=== PATIENT | female | born 1960 | race Two or more races ===

== ENCOUNTER 2021-03-23 00:26 | Emergency (ER) | payer OTHER ==
[~2021-03-23] VITALS: Ht 160 cm; Wt 72.6 kg
[2021-03-23 00:57] VITALS: BP 146/95
[2021-03-23 02:56] LABS: Basophils # (auto) 0.1 10 ^3/uL (0-0.2); Basophils % (auto) 0.7 % (0.0-2.0); Eosinophils # (auto) 0.1 10 ^3/uL (0-0.8); Eosinophils % (auto) 0.9 % (0.0-7.0); Hematocrit 38.6 % (36.0-46.0); Hemoglobin 12.8 g/dL (12.2-16.2); Lymphocytes # (auto) 1.7 10 ^3/uL (0.4-5.4); Lymphocytes % (auto) 19.8 % (10.0-50.0); Mean Corpuscular Hemoglobin 27.2 pg (28.0-32.0); Mean Corpuscular Hgb Conc. 33.1 g/dL (32.0-36.0); Monocytes # (auto) 0.5 10 ^3/uL (0-1.3); Monocytes % (auto) 5.7 % (0.0-12.0); Neutrophils # (auto) 6.3 10 ^3/uL (1.6-8.6); Neutrophils % (auto) 72.9 % (37.0-80.0); Nucleated Red Blood Cells % 0.1 %; Red Blood Cells 4.71 10^6/uL (4.0-5.20); Red Cell Distribution Width 14.1 % (11.8-14.3); White Blood Cell 8.6 10^3/uL (4.4-10.8)
[2021-03-23 03:08] LABS: Albumin 3.8 g/dL (3.4-5.0); Calcium 9.2 mg/dL (8.5-10.1); Potassium 5.2 mmol/L (3.5-5.1)
[2021-03-23 03:11] LABS: BUN/Creatinine Ratio 25.3
[2021-03-23 03:16] LABS: Bilirubin, Total 0.5 mg/dL (0.2-1.0); Total Protein 7.6 g/dL (6.4-8.2)
[2021-03-23] MEDS ORDERED: CALCIUM GLUC 1,000mg/50ml-NS 50 ML IV ONE (05:00)
== END 2021-03-23 10:39 | disposition home or self-care (01) ==
LOC: ER 00:26 → EDBD 00:26 → ER 10:39
DX: R10.33 Periumbilical pain (principal); H81.13 Benign paroxysmal vertigo, bilateral; Z98.51 Tubal ligation status
CPT/HCPCS: 36415; 80053; 84484; 85025; 93005

== ENCOUNTER 2022-11-29 16:16 | Emergency (ER) | payer OTHER ==
[~2022-11-29] VITALS: Ht 160 cm; Wt 78.7 kg
[2022-11-29 16:16] VITALS: BP 126/76
[2022-11-29] MEDS ORDERED: IBUP-1456 PO (17:10)
[2022-11-29] MEDS ORDERED: CEPH500C PO (17:10)
== END 2022-11-29 17:39 | disposition home or self-care (01) ==
LOC: ER 16:16
DX: L60.0 Ingrowing nail (principal); Z98.51 Tubal ligation status

== ENCOUNTER 2023-10-23 14:58 | Emergency (ER) | payer OTHER ==
[~2023-10-23] VITALS: Ht 165.1 cm; Wt 75.1 kg
[~2023-10-23 14:58] MED LIST: CEPH500C PO; IBUP-1456 PO
[2023-10-23 16:31] LABS: Urine Bacteria MOD /hpf (None Seen); Urine Blood 1+ /uL (Negative); Urine Clarity Clear (Clear); Urine Color Light-Yellow (Yellow); Urine Protein, UAD Negative (Negative); Urine Specific Gravity 1.007 (1.001-1.035); Urine Urobilinogen Normal (Negative); Urine WBC 118 /hpf (0 - 5); Urine pH 6.5 (5.0-9.0)
[2023-10-23 16:35] LABS: Basophils # (auto) 0.1 10 ^3/uL (0-0.2); Basophils % (auto) 0.5 % (0.0-2.0); Eosinophils # (auto) 0.1 10 ^3/uL (0-0.8); Eosinophils % (auto) 0.5 % (0.0-7.0); Hemoglobin 12.1 g/dL (12.2-16.2); Lymphocytes # (auto) 2.2 10 ^3/uL (0.4-5.4); Lymphocytes % (auto) 20.2 % (10.0-50.0); Mean Corpuscular Hemoglobin 27.4 pg (28.0-32.0); Mean Corpuscular Hgb Conc. 33.7 g/dL (32.0-36.0); Mean Corpuscular Volume 81.3 fL (80.0-100.0); Neutrophils # (auto) 7.6 10 ^3/uL (1.6-8.6); Neutrophils % (auto) 69.8 % (37.0-80.0); Red Blood Cells 4.43 10^6/uL (4.0-5.20); Red Cell Distribution Width 13.7 % (11.8-14.3); White Blood Cell 10.9 10^3/uL (4.4-10.8)
[2023-10-23 16:57] LABS: Alanine Aminotransferase 17 U/L (7-40); Albumin 4.5 g/dL (3.2-4.8); Alkaline Phosphatase 85 U/L (46-116); Anion Gap 8 (5-15); Aspartate Aminotransferase 17 U/L (13-40); BUN/Creatinine Ratio 20.3 (10.0-20.0); Bilirubin, Total 0.6 mg/dL (0.2-1.0); Blood Urea Nitrogen 16 mg/dL (9-23); Carbon Dioxide 28 mmol/L (20-30); Chloride 106 mmol/L (98-107); Glucose 92 mg/dL (74-106); Lipase 64 U/L (12-53); Potassium 4.7 mmol/L (3.5-5.1); Sodium 142 mmol/L (136-145); Total Protein 7.5 g/dL (5.7-8.2)
[2023-10-23] MEDS ORDERED: ACET500T58 PO (18:29)
[2023-10-23] MEDS ORDERED: MET500T PO (18:29)
[2023-10-23] MEDS ORDERED: DICY10CA PO (18:29)
[2023-10-23] MEDS ORDERED: NITR-87 PO (18:29)
[2023-10-23] MEDS ORDERED: ZOFR4T PO (18:31)
[2023-10-23] MEDS: DICYCLOMINE HCL (10MG/ML) 2 ML AMPULE IM ONE (21:43)
[2023-10-23] MEDS: ONDANSETRON ODT 4 MG TAB PO ONE (21:44)
[2023-10-23] MEDS: NITROFURANTOIN 100 mg CAP PO ONE (21:44)
[2023-10-23 22:02] VITALS: BP 130/72; PULSE 77; RESP 18; TEMP 98.6; O2SAT 98
== END 2023-10-23 22:04 | disposition home or self-care (01) ==
LOC: ER 14:58
DX: K29.00 Acute gastritis without bleeding (principal); N39.0 Urinary tract infection, site not specified; Z98.890 Other specified postprocedural states; Z79.899 Other long term (current) drug therapy
CPT/HCPCS: 36415; 74176; 80053; 81001; 83690; 85025; 87045; 96372; 99285; J0500; Q0162; 87427

== ENCOUNTER 2024-09-10 15:23 | Inpatient (IN) | payer OTHER ==
[~2024-09-10] VITALS: Ht 165.1 cm; Wt 72.5 kg
[~2024-09-10 15:23] MED LIST changes: +ACET500T58 PO; +DICY10CA PO; +MET500T PO; +NITR-87 PO; +ZOFR4T PO
--- NOTE | 2024-09-10 15:48 | ED.PDOC ---
HPI (NEURO) HPI Comments 63 y/o F presents with c/o dizziness She reports on sudden onset of symptoms at 1000, this morning. Describes as room spinning sensation. Cannot stand and walk straight Reproducible with rapid rotations of her head. Vitals: temperature of 97.5F, pulse rate of 83, respiratory rate of 19, blood pressure 145/93, SpO2 of 98%RA Past medical history: denies Past surgical history: tubal ligation Maikol: HPI: Poor Historian. REVIEW OF SYSTEMS: CONSTITUTIONAL: Denies acute: fever, diaphoresis, chills, generalized weakness. HEAD: Denies acute: headache, photophobia Eyes: Denies acute: Double vision, vision loss, eye pain, eye discharge. EARS: Denies acute: tinnitus, hearing loss, ear discharge, ear pain, THROAT: Denies acute: sore throat, swelling, difficulty swallowing , pain with swallowing, change in voice. NECK: Denies acute: neck pain, neck swelling, stiff neck. HEART: Denies acute : chest pain, palpitations, LUNGS: Denies acute: SOB, wheezing, cough, hemoptysis ABDOMEN: Denies acute: abdominal pain, Nausea, Vomiting, diarrhea, melena , hematemesis, hematochezia SKIN: Denies acute: rash, redness, lesions, itchiness. EXTREMITIES: Denies acute: calf pain, numbness, tingling, weakness, denies pain in extremity. Denies acute: Low back pain. Neuro: Denies acute: focal neurological deficit, motor or sensory focal neurological deficit, tremors, seizure like activity, confusion, , change in mental status, loss of bowel or bladder function, cauda equina like symptoms. : Denies acute: dysuria, hematuria, flank pain, increase in urinary frequency. PSYCH: Denies acute: hallucination, suicidal ideation, homicidal ideation. FEMALE: Denies acute: abnormal vaginal bleeding, foul odor, unusual discharge. PHYSICAL EXAM: General: ----mild----acute distress, awake and alert. Head: normocephalic, atraumatic. Neck: supple, trachea is midline, no swelling. Throat: Normal phonation. Eyes:, no erythema, no purulent discharge, no proptosis, no icterus. Heart: regular rate, regular rhythm, no significant murmur appreciated. Lungs: no apparent respiratory distress, Able to speak in full sentences. No wheezing, no rhonchi, no crackles. No stridors Clear to auscultation bilaterally. Abdomen: non tender to palpation, non distended, soft, no guarding, no rebound, + bowel sounds. Neuro: Awake, Alert, oriented to name, self, situation, follows commands GCS=15. Speech is normal. Skin: no petechia, no purpura, no cyanosis, non-pale, not jaundice. Lower extremities: --no - Pitting edema no deformity, no focal swelling, no calf TTP. Makes eye contact. moves all four extremities. Face: no apparent facial droop. Ambulating in the ED independently. PERRLA, EOM-I CN 2-12 are grossly intact, No nystagmus. No nuchal rigidity, Kernig's sign, Brudzinski's sign, no meningeal signs. 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 Was a procedure done?: No Differential Diagnosis (SZ) Seizure: N/A General Weakness: Anemia, CVA, Dehydration, Dysrhythmia, Electrolyte imbalance, Encephalopathy, Guillain-[place], Hypoglycemia, Hypotension, Hypovolemia, Labyrinthitis, Meniere's disease, Myasthenia gravis, Myocardial infarction, Pulmonary embolus, Renal failure, Repiratory failure, TIA, VBI, Vertigo: central, Vertigo: peripheral, Vestibular neuronitis X-Ray, Labs, Meds, VS Vital Signs Date Time Temp Pulse Resp B/P (MAP) Pulse Ox O2 Delivery O2 Flow Rate FiO2 09/10/24 20:00 61 09/10/24 18:23 69 125/70 70 130/70 72 145/76 09/10/24 18:00 98.1 69 13 125/70 (88) 100 98.1 09/10/24 16:51 71 16 98 Room Air* 0 21 09/10/24 16:29 74 16 96 Room Air 09/10/24 16:29 98.1 74 16 127/74 (91) 96 98.1 09/10/24 15:41 97.5 83 19 145/93 (110) 98 97.5 09/10/24 15:37 72 Lab Test 09/10/24 18:37 09/10/24 17:55 09/10/24 16:42 09/10/24 15:43 Range/Units Troponin I High Sensitivity < 3 L < 3 L < 3 L </=34 ng/L C-Reactive Protein High Sensitivity Pending Urine Color Colorless Yellow Urine Clarity Clear Clear Urine pH 6.0 5.0-9.0 Urine Specific [place] 1.003 1.001-1.035 Urine Protein Negative Negative Urine Ketones Negative Negative Urine Blood Negative Negative /uL Urine Nitrite Negative Negative Urine Bilirubin Negative Negative Urine Urobilinogen Normal Negative mg/dL Urine Leukocyte Esterase 2+ Negative /uL Urine RBC <1 0 - 4 /hpf Urine Microscopic WBC 7 H 0-5 /HPF Urine Squamous Epithelial Cells None seen <5 /hpf Urine Bacteria Few H None Seen /hpf Urine Glucose Normal Normal mg/dL White Blood Count 9.9 4.4-10.8 10^3/uL Red Blood Count 4.55 4.0-5.20 10^6/uL Hemoglobin 12.4 12.2-16.2 g/dL Hematocrit 37.0 36.0-46.0 % Mean Corpuscular Volume 81.4 80.0-100.0 fL Mean Corpuscular Hemoglobin 27.1 L 28.0-32.0 pg Mean Corpuscular Hemoglobin Concent 33.3 32.0-36.0 g/dL Red Cell Distribution Width 14.1 11.8-14.3 % Platelet Count 297 140-450 10^3/uL Mean Platelet Volume 8.5 6.9-10.8 fL Neutrophils (%) (Auto) 70.3 37.0-80.0 % Lymphocytes (%) (Auto) 19.0 10.0-50.0 % Monocytes (%) (Auto) 8.8 0.0-12.0 % Eosinophils (%) (Auto) 1.4 0.0-7.0 % Basophils (%) (Auto) 0.5 0.0-2.0 % Neutrophils # (Auto) 6.9 1.6-8.6 10 ^3/uL Lymphocytes # (Auto) 1.9 0.4-5.4 10 ^3/uL Monocytes # (Auto) 0.9 0-1.3 10 ^3/uL Eosinophils # (Auto) 0.1 0-0.8 10 ^3/uL Basophils # (Auto) 0.1 0-0.2 10 ^3/uL Nucleated Red Blood Cells 0.0 % Sodium Level 140 136-145 mmol/L Potassium Level 4.1 3.5-5.1 mmol/L Chloride Level 103 98-107 mmol/L Carbon Dioxide Level 29 20-31 mmol/L Anion Gap 8 5-15 Blood Urea Nitrogen 21 9-23 mg/dL Creatinine 0.72 0.550-1.02 mg/dL Glomerular Filtration Rate Calc 93 >90 mL/min BUN/Creatinine Ratio 29.2 H 10.0-20.0 Serum Glucose 115 H 74-106 mg/dL Lactic Acid Level 0.5 0.4-2.0 mmol/L Calcium Level 9.8 8.7-10.4 mg/dL Magnesium Level 2.0 1.6-2.6 mg/dL Total Bilirubin 0.6 0.2-1.0 mg/dL Aspartate Amino Transferase (AST) 20 13-40 U/L Alanine Aminotransferase (ALT) 21 7-40 U/L Alkaline Phosphatase 87 46-116 U/L Total Protein 7.1 5.7-8.2 g/dL Albumin 4.6 3.2-4.8 g/dL Test 09/10/24 15:42 Range/Units POC Glucose 102 70-106 mg/dl Current Medications Medications (Trade) Dose Ordered Sig/Teodora Route Start Time Stop Time Status Last Admin Sodium Chloride 1,000 ml @ 1,000 mls/hr Q1H ONCE IV 09/10/24 15:30 09/10/24 16:29 DC 09/10/24 16:25 Meclizine HCl (Antivert Tablet) 25 mg ONCE ONCE PO 09/10/24 15:30 09/10/24 15:32 DC 09/10/24 16:24 Diazepam (Valium Tablet) 5 mg ONCE ONCE PO 09/10/24 18:15 09/10/24 18:26 DC 09/10/24 18:40 Ceftriaxone Sodium 50 ml @ 100 mls/hr ONCE ONCE IV 09/10/24 20:00 09/10/24 20:29 DC 09/10/24 20:[address] [address] Ph: [phone] DIAGNOSTIC IMAGING Diagnostic Imaging Report : [id number] Signed PATIENT: JOE SLAOMON EACCT: [id number] UNIT: [id number] : 1960 LOC: ER ROOM / BED: / AGE / SEX: 63 / F ADM STATUS: REG ER SERVICE 11 ORDERING PHYSICIAN: CAMRYN CALDERA DO PROCEDURE(s): HWOCT - HEAD WITHOUT CONTRAST REASON: dizzy ORDER NUMBER(s): [id number], ACCESSION NUMBER(s): [id number] CT BRAIN WITHOUT CONTRAST HISTORY: dizzy TECHNIQUE: Axial scans were obtained from the skull base through the vertex without contrast. Sagittal and coronal reformats were generated. One or more of the following radiation dose reduction techniques were used for this ex amination: automated exposure control, adjustment of the mA and/or kV according to patient size, use of iterative reconstruction technique. COMPARISON: None FINDINGS: Streak artifact limits evaluation of the skull base and posterior fossa. As visualized, no definite acute intracranial hemorrhage or evidence of large vessel territorial infarction is identified at this time. No midline shift. The basilar cisterns appear patent. Craig-white differentiation appears relatively preserved. The visualized paranasal sinuses and mastoid air cells are clear. No grossly displaced calvarial abnormalities identified. IMPRESSION: No acute intracranial Findings as visualized. If there is persistent clinical concern, follow-up MRI may be obtained to further evaluate. ATED BY: RAMAN RENTERIA MD DICTATED DATE/TIME: 09/10/242036 SIGNED BY: RAMAN RENTERIA MD SIGNED DATE/TIME: 09/10/242036 CC: Time of 1ST Reevaluation: 16:00 Reevaluation 1ST: Unchanged Reevaluation 2ND: Unchanged Patient Education/Counseling: Diagnosis, Treatment Family Education/Counseling: No Family Present Comments Patient received meclizine and continues to have vertigo-like symptoms. Patient was given Valium and she sent some improvement however when we ambulated her she became very dizzy and was almost about the fall. Patient was unsteady on her feet due to vertigo. I will place the patient for admission for further evaluation and treatment. Patient presented with the above HPI.--dizziness----workup was initiated. patient was found with the above mentioned diagnosis. the following medications were ordered: please refer to order lists of meds and tests obtained by myself Dr. Caldera. Patient ED course and VS have been stabilized. Patient has been reassessed in the ED and remained in a stable condition. Pertinent incidental findings were discussed with the patient and/or family. Patient/family voices understanding and is agreeable with plan. Patient has been observed in the ED adequate length of time to insure improvement/stability. Escalation of care considered: Consideration of escalation to observation or admission Patient was ADMITTED to the medicine team for further evaluation and treatment of their presentation. All the reports of any imaging studies that were ordered by myself were reviewed by myself. Departure 1 Departure Time of Disposition: 20:40 Impression: Primary Impression: Vertigo Disposition: ADMITTED INPATIENT Admit to: Tele Condition: Guarded Discharged With: Self Critical Care Note Critical Care Time?: No I personally scribed for CAMRYN CALDERA DO ([email or web address]) on 09/10/24 at 15:48. Electronically submitted by Devan Mesa ([email or web address]). CAMRYN CALDERA DO Sep 10, 2024 15:48
[2024-09-10 16:01] LABS: Basophils # (auto) 0.1 10 ^3/uL (0-0.2); Basophils % (auto) 0.5 % (0.0-2.0); Eosinophils # (auto) 0.1 10 ^3/uL (0-0.8); Eosinophils % (auto) 1.4 % (0.0-7.0); Hemoglobin 12.4 g/dL (12.2-16.2); Lymphocytes # (auto) 1.9 10 ^3/uL (0.4-5.4); Mean Corpuscular Hemoglobin 27.1 pg (28.0-32.0); Mean Corpuscular Hgb Conc. 33.3 g/dL (32.0-36.0); Mean Corpuscular Volume 81.4 fL (80.0-100.0); Monocytes # (auto) 0.9 10 ^3/uL (0-1.3); Monocytes % (auto) 8.8 % (0.0-12.0); Neutrophils # (auto) 6.9 10 ^3/uL (1.6-8.6); Neutrophils % (auto) 70.3 % (37.0-80.0); Platelet Count (auto) 297 10^3/uL (140-450); Red Blood Cells 4.55 10^6/uL (4.0-5.20); Red Cell Distribution Width 14.1 % (11.8-14.3); White Blood Cell 9.9 10^3/uL (4.4-10.8)
[2024-09-10 16:19] LABS: Alanine Aminotransferase 21 U/L (7-40); Albumin 4.6 g/dL (3.2-4.8); Alkaline Phosphatase 87 U/L (46-116); Anion Gap 8 (5-15); Aspartate Aminotransferase 20 U/L (13-40); BUN/Creatinine Ratio 29.2 (10.0-20.0); Blood Urea Nitrogen 21 mg/dL (9-23); Calcium 9.8 mg/dL (8.7-10.4); Carbon Dioxide 29 mmol/L (20-31); Chloride 103 mmol/L (98-107); Potassium 4.1 mmol/L (3.5-5.1); Sodium 140 mmol/L (136-145); Total Protein 7.1 g/dL (5.7-8.2)
[2024-09-10 16:20] LABS: Bilirubin, Total 0.6 mg/dL (0.2-1.0); Glucose 115 mg/dL (74-106)
[2024-09-10] MEDS: MECLIZINE HCL 25 MG TAB PO ONE (16:24)
[2024-09-10] MEDS: SODIUM CHLORIDE 0.9% 1,000 ML IV ONE (16:25)
[2024-09-10 16:51] VITALS: PULSE 71; RESP 16; O2SAT 98
[2024-09-10 18:13] LABS: Urine Bacteria FEW /hpf (None Seen); Urine Blood Negative /uL (Negative); Urine Clarity Clear (Clear); Urine Color Colorless (Yellow); Urine Protein, UAD Negative (Negative); Urine Specific Gravity 1.003 (1.001-1.035); Urine Squamous Epithelial Cell None Seen /hpf (<5); Urine Urobilinogen Normal (Negative); Urine WBC 7 /HPF (0-5)
[2024-09-10] MEDS: diazePAM 5 MG TAB PO ONE (18:40)
[2024-09-10 20:00] VITALS: PULSE 71; RESP 14; O2SAT 96
[2024-09-10] MEDS: cefTRIAXone 1GM/50ML D5W 50 ML IV ONE (20:30)
--- NOTE | 2024-09-10 20:40 | DVH ---
CT BRAIN WITHOUT CONTRAST HISTORY: dizzy TECHNIQUE: Axial scans were obtained from the skull base through the vertex without contrast. Sagitta l and coronal reformats were generated. One or more of the following radiation dose reduction techniq ues were used for this examination: automated exposure control, adjustment of the mA and/or kV accord ing to patient size, use of iterative reconstruction technique. COMPARISON: None FINDINGS: Streak artifact limits evaluation of the skull base and posterior fossa. As visualized, no definite acute intracranial hemorrhage or evidence of large vessel territorial infa rction is identified at this time. No midline shift. The basilar cisterns appear patent. Craig-white differentiation appears relatively preserved. The visualized paranasal sinuses and mastoid air cells are clear. No grossly displaced calvarial abno rmalities identified. IMPRESSION: No acute intracranial Findings as visualized. If there is persistent clinical concern, follow-up MRI may be obtained to further evaluate.
[2024-09-10] MEDS ORDERED: HYDROcodone-ACET 5/325MG TAB PO PRN (21:15)
[2024-09-10] MEDS ORDERED: ONDANSETRON HCL 4 MG/2 ML VIAL IV PRN (21:15)
[2024-09-10] MEDS ORDERED: DOCUSATE SOD 100 MG CAP PO PRN (21:15)
[2024-09-10] MEDS ORDERED: ACETAMINOPHEN 325 MG TAB PO PRN (21:15)
--- NOTE | 2024-09-10 21:17 | DVHHP2 ---
Admitting Diagnosis: Dizziness History of Present Illness 63 y/o F presents with c/o dizziness She reports on sudden onset of symptoms at 1000, this morning. Describes as room spinning sensation. Cannot stand and walk straight Reproducible with rapid rotations of her head. 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 HEAD: Denies acute: headache, photophobia Eyes: Denies acute: Double vision, vision loss, eye pain, eye discharge. EARS: Denies acute: tinnitus, hearing loss, ear discharge, ear pain, THROAT: Denies acute: sore throat, swelling, difficulty swallowing , pain with swallowing, change in voice. NECK: Denies acute: neck pain, neck swelling, stiff neck. HEART: Denies acute : chest pain, palpitations, LUNGS: Denies acute: SOB, wheezing, cough, hemoptysis ABDOMEN: Denies acute: abdominal pain, Nausea, Vomiting, diarrhea, melena , hematemesis, hematochezia SKIN: Denies acute: rash, redness, lesions, itchiness. EXTREMITIES: Denies acute: calf pain, numbness, tingling, weakness, denies pain in extremity. Denies acute: Low back pain. Neuro: Denies acute: focal neurological deficit, motor or sensory focal neurological deficit, tremors, seizure like activity, confusion, , change in mental status, loss of bowel or bladder function, cauda equina like symptoms. : Denies acute: dysuria, hematuria, flank pain, increase in urinary frequency. PSYCH: Denies acute: hallucination, suicidal ideation, homicidal ideation. FEMALE: Denies acute: abnormal vaginal bleeding, foul odor, unusual discharge. Allergies: Coded Allergies: NO KNOWN ALLERGIES (Unverified , 07/22/12) Home Meds Active Scripts Ondansetron Odt 4MG Tab (ZOFRAN PO) 4 Mg Tb, 4 MG PO Q6HP PRN, #20 TAB ODT TAB-DISSOLVE IN MOUTH, THEN SWALLOW Prov:SHIRLEY PARRY PAC 10/23/23 Acetaminophen (Acetaminophen) 500 Mg Tab, 500 MG PO Q4HP PRN, #30 TAB Prov:SHIRLEY PARRY PAC 10/23/23 Dicyclomine Hcl (BENTYL CAPSULE) 10 Mg Cp, 1 CAP PO Q6HPRN, #20 CAP 0 Refills Prov:SHIRLEY PARRY PAC 10/23/23 Metronidazole (Metronidazole) 500 Mg Tab, 500 MG PO BID for 10 Days, #20 TAB Prov:SHIRLEY PARRY PAC 10/23/23 Nitrofurantoin Monohydrate Mac (Macrobid) 100 Mg Cap, 100 MG PO BID for 7 Days, #14 CAP Prov:SHIRLEY PARRY PAC 10/23/23 Ibuprofen (Ibuprofen) 800 Mg Tab, 1 TAB PO TID, #30 TAB Prov:JAKE PINON 11/29/22 Cephalexin Monohydrate (Cephalexin) 500 Mg Cap, 1 CAP PO QID, #40 CAP Prov:JAKE PINON 11/29/22 Vital Signs Vital Signs Date Time Temp Pulse Resp B/P (MAP) Pulse Ox O2 Delivery O2 Flow Rate FiO2 09/10/24 20:00 61 09/10/24 18:23 125/70 130/70 145/76 09/10/24 18:00 98.1 13 100 98.1 09/10/24 16:51 Room Air* 0 21 Physical Exam Generally 60 years old woman, well nourished well developed. No apparent distress HEENT-atraumatic normocephalic Heart-regular rate and rhythm Lungs clear to auscultate bilaterally Abdomen soft nontender nondistended Musculoskeletal-no edema cyanosis Neuro-AO x3, cranial nerves 2-12 grossly intact, strength and sensory intact Results Labs Test 09/10/24 18:37 09/10/24 17:55 09/10/24 15:43 09/10/24 15:42 Range/Units Troponin I High Sensitivity < 3 L </=34 ng/L Urine Color Colorless Yellow Urine Clarity Clear Clear Urine pH 6.0 5.0-9.0 Urine Specific [place] 1.003 1.001-1.035 Urine Protein Negative Negative Urine Ketones Negative Negative Urine Blood Negative Negative /uL Urine Nitrite Negative Negative Urine Bilirubin Negative Negative Urine Urobilinogen Normal Negative mg/dL Urine Leukocyte Esterase 2+ Negative /uL Urine RBC <1 0 - 4 /hpf Urine Microscopic WBC 7 H 0-5 /HPF Urine Squamous Epithelial Cells None seen <5 /hpf Urine Bacteria Few H None Seen /hpf Urine Glucose Normal Normal mg/dL White Blood Count 9.9 4.4-10.8 10^3/uL Red Blood Count 4.55 4.0-5.20 10^6/uL Hemoglobin 12.4 12.2-16.2 g/dL Hematocrit 37.0 36.0-46.0 % Mean Corpuscular Volume 81.4 80.0-100.0 fL Mean Corpuscular Hemoglobin 27.1 L 28.0-32.0 pg Mean Corpuscular Hemoglobin Concent 33.3 32.0-36.0 g/dL Red Cell Distribution Width 14.1 11.8-14.3 % Platelet Count 297 140-450 10^3/uL Mean Platelet Volume 8.5 6.9-10.8 fL Neutrophils (%) (Auto) 70.3 37.0-80.0 % Lymphocytes (%) (Auto) 19.0 10.0-50.0 % Monocytes (%) (Auto) 8.8 0.0-12.0 % Eosinophils (%) (Auto) 1.4 0.0-7.0 % Basophils (%) (Auto) 0.5 0.0-2.0 % Neutrophils # (Auto) 6.9 1.6-8.6 10 ^3/uL Lymphocytes # (Auto) 1.9 0.4-5.4 10 ^3/uL Monocytes # (Auto) 0.9 0-1.3 10 ^3/uL Eosinophils # (Auto) 0.1 0-0.8 10 ^3/uL Basophils # (Auto) 0.1 0-0.2 10 ^3/uL Nucleated Red Blood Cells 0.0 % Sodium Level 140 136-145 mmol/L Potassium Level 4.1 3.5-5.1 mmol/L Chloride Level 103 98-107 mmol/L Carbon Dioxide Level 29 20-31 mmol/L Anion Gap 8 5-15 Blood Urea Nitrogen 21 9-23 mg/dL Creatinine 0.72 0.550-1.02 mg/dL Glomerular Filtration Rate Calc 93 >90 mL/min BUN/Creatinine Ratio 29.2 H 10.0-20.0 Serum Glucose 115 H 74-106 mg/dL Lactic Acid Level 0.5 0.4-2.0 mmol/L Calcium Level 9.8 8.7-10.4 mg/dL Magnesium Level 2.0 1.6-2.6 mg/dL Total Bilirubin 0.6 0.2-1.0 mg/dL Aspartate Amino Transferase (AST) 20 13-40 U/L Alanine Aminotransferase (ALT) 21 7-40 U/L Alkaline Phosphatase 87 46-116 U/L Total Protein 7.1 5.7-8.2 g/dL Albumin 4.6 3.2-4.8 g/dL POC Glucose 102 70-106 mg/dl Primary Diagnosis Persistent vertigo rule out posterior stroke Plan CT head negative Meclizine and Valium did not with the dizzy Check brain MRI Neurology consult Neuro check per floor protocol Full code Lovenox for DVT prophylaxis Regular diet Plan discussed with: Patient Problems List: (1) Vertigo Status: Acute Date of Service: Sep 10, 2024 Billing Provider: MARILU GUNDERSON MD Common Visit Codes: [id number] INP/OBS CARE (MOD) MARILU GUNDERSON MD Sep 10, 2024 21:17
[2024-09-10] MEDS: SODIUM CHLOR 0.9% PF (SALINE LOCK) 10ML VIAL/SYR IV SCH (21:59)
[2024-09-10 22:40] VITALS: BP 125/64; PULSE 61; RESP 16; TEMP 94.3; O2SAT 98
[2024-09-10 23:07] VITALS: RESP 14
[2024-09-10 23:17] VITALS: BP 125/64; PULSE 61; RESP 16; O2SAT 98
[2024-09-11 01:00] VITALS: BP 120/80; PULSE 68; RESP 17; TEMP 97.6; O2SAT 100
[2024-09-11 05:00] VITALS: BP 125/68; PULSE 65; RESP 17; TEMP 96.4; O2SAT 100
[2024-09-11 07:16] LABS: Basophils # (auto) 0 10 ^3/uL (0-0.2); Basophils % (auto) 0.3 % (0.0-2.0); Eosinophils # (auto) 0.2 10 ^3/uL (0-0.8); Eosinophils % (auto) 2.8 % (0.0-7.0); Hematocrit 34.9 % (36.0-46.0); Hemoglobin 11.6 g/dL (12.2-16.2); Lymphocytes % (auto) 24.9 % (10.0-50.0); Monocytes # (auto) 0.9 10 ^3/uL (0-1.3); Monocytes % (auto) 11.5 % (0.0-12.0); Neutrophils % (auto) 60.5 % (37.0-80.0); Red Blood Cells 4.29 10^6/uL (4.0-5.20); White Blood Cell 8.2 10^3/uL (4.4-10.8)
[2024-09-11 07:17] LABS: Mean Corpuscular Hemoglobin 27.1 pg (28.0-32.0); Mean Corpuscular Hgb Conc. 33.4 g/dL (32.0-36.0); Mean Corpuscular Volume 81.3 fL (80.0-100.0); Platelet Count (auto) 288 10^3/uL (140-450); Red Cell Distribution Width 14.2 % (11.8-14.3)
[2024-09-11 07:21] LABS: Alanine Aminotransferase 16 U/L (7-40); Albumin 4.1 g/dL (3.2-4.8); Alkaline Phosphatase 72 U/L (46-116); Anion Gap 8 (5-15); Aspartate Aminotransferase 17 U/L (13-40); Bilirubin, Total 0.6 mg/dL (0.2-1.0); Blood Urea Nitrogen 19 mg/dL (9-23); Calcium 9.7 mg/dL (8.7-10.4); Carbon Dioxide 28 mmol/L (20-31); Chloride 108 mmol/L (98-107); Glucose 101 mg/dL (74-106); Sodium 144 mmol/L (136-145); Total Protein 6.7 g/dL (5.7-8.2)
[2024-09-11 09:00] VITALS: BP 130/79; PULSE 76; RESP 20; TEMP 97.9; O2SAT 100
--- NOTE | 2024-09-11 09:51 | DVHPN2 ---
Subjective Continues to complain of dizziness Reviewed: Care Plan, H&P, Labs, Medications, Previous Orders, Radiology Changes from previous H/P or p: No Changes Objective Vitals Vital Signs Date Time Temp Pulse Resp B/P (MAP) Pulse Ox O2 Delivery O2 Flow Rate FiO2 09/11/24 09:00 97.9 76 20 130/79 (96) 100 97.9 09/10/24 23:07 Room Air* 0 21 Intake/Output Intake and Output 09/11/24 07:00 Intake Total 465 ml Balance 465 ml Intake Oral 465 ml # Voids 1 General Appearance: Alert, Oriented X3, Cooperative, No acute distress HEENT: Atraumatic Lungs: Clear to auscultation, Normal air movement Cardiovascular: Regular rate, Normal S1, Normal S2, No murmurs Abdomen: Normal bowel sounds, Soft, No tenderness Neuro: Normal speech, Cranial nerves 3-12 NL Psych/Mental Status: Mental status NL, Mood NL Medications Current Medications Medications Dose Ordered Sig/Teodora Route Start Time Stop Time Status Last Admin Dose Admin Sodium Chloride 10 ml Q8HR IV 09/10/24 22:00 09/11/24 06:02 10 ML Docusate Sodium 100 mg BIDPRN PRN PO 09/10/24 21:15 Acetaminophen 650 mg Q6HP PRN PO 09/10/24 21:15 Acetaminophen/ Hydrocodone Bitart 1 tab Q4HP PRN PO 09/10/24 21:15 Ondansetron HCl 4 mg Q4HP PRN IV 09/10/24 21:15 Laboratory Results Laboratory Tests 09/11/24 05:48 Chemistry Test 09/10/24 15:43 09/11/24 05:48 Albumin 4.6 g/dL (3.2-4.8) 4.1 g/dL (3.2-4.8) Calcium Level 9.8 mg/dL (8.7-10.4) 9.7 mg/dL (8.7-10.4) Magnesium Level 2.0 mg/dL (1.6-2.6) Total Protein 7.1 g/dL (5.7-8.2) 6.7 g/dL (5.7-8.2) LFT Test 09/10/24 15:43 09/11/24 05:48 Alanine Aminotransferase (ALT) 21 U/L (7-40) 16 U/L (7-40) Alkaline Phosphatase 87 U/L (46-116) 72 U/L (46-116) Aspartate Amino Transferase (AST) 20 U/L (13-40) 17 U/L (13-40) Total Bilirubin 0.6 mg/dL (0.2-1.0) 0.6 mg/dL (0.2-1.0) Urinalysis Test 09/10/24 17:55 Urine Color Colorless (Yellow) Urine Clarity Clear (Clear) Urine pH 6.0 (5.0-9.0) Urine Specific [place] 1.003 (1.001-1.035) Urine Protein Negative (Negative) Urine Ketones Negative (Negative) Urine Blood Negative /uL (Negative) Urine Nitrite Negative (Negative) Urine Bilirubin Negative (Negative) Urine Urobilinogen Normal mg/dL (Negative) Urine Leukocyte Esterase 2+ /uL (Negative) Urine RBC <1 /hpf (0 - 4) Urine Microscopic WBC 7 /HPF (0-5) H Urine Squamous Epithelial Cells None seen /hpf (<5) Urine Bacteria Few /hpf (None Seen) H Urine Glucose Normal mg/dL (Normal) Labs and/or images reviewed: Labs reviewed by me, Image(s) reviewed by me Assessment/Plan Assessment/Plan A 63-year-old female patient; with multiple comorbidities; presented to the emergency department with acute dizziness. Acute dizziness; stroke ruled out; unclear etiology Overweight Negative orthostatics Reviewed head CT and brain MRI that showed no acute abnormality Neurology consulted Fall precautions Counseled the patient importance of adopting healthy lifestyle with diet and exercise in order to lose weight Continue monitoring Goals of care discussed with the patient for 20 minutes; full code Late Entry. This medical document was created using an electronic medical record system with computerized dictation system. Although this document has been carefully reviewed, there might still be some phonetic and typographical errors. These areas are purely typographical due to imperfections of the software programs, and do not reflect any compromise in the patient's medical care. Plan discussed with: Patient, Other (Nurse) Date of Service: Sep 11, 2024 Billing Provider: ASUNCION CREWS MD Common Visit Codes: [id number] INP/OBS CARE(HIGH) Secondary Visit Codes: [id number] CARE PLAN 30 MINUTES (20 minutes) ASUNCION CREWS MD Sep 11, 2024 09:51
[2024-09-11 13:00] VITALS: BP_SYST 111; BP_SYST 112; BP_SYST 115; BP_DIAS 64; BP_DIAS 68; BP_DIAS 69; PULSE 77; PULSE 79; RESP 18; RESP 19; TEMP 98; O2SAT 100
[2024-09-11 17:00] VITALS: BP 104/63; PULSE 70; RESP 18; TEMP 98.2; O2SAT 97
--- NOTE | 2024-09-11 17:56 | DVH ---
EXAM: MRI BRAIN HEAD WO CONTRAST; DATE: 09/11/2024 04:42 PM HISTORY: persistent vertigo r/o posterior stroke COMPARISON: None TECHNIQUE: MRI was performed utilizing multiple appropriate imaging planes and pulse sequences. FINDINGS: SUPRATENTORIAL REGION: No evidence for acute ischemia or intracranial hemorrhage. POSTERIOR FOSSA: Unremarkable. BRAINSTEM: Unremarkable. SELLAR/SUPRASELLAR REGION: Unremarkable. VENTRICLES, CISTERNS, SULCI: Age-appropriate. ORBITS: Unremarkable. PARANASAL SINUSES: Unremarkable. MASTOID AIR CELLS: Unremarkable. VASCULATURE: Unremarkable. BONES/ SOFT TISSUES: Unremarkable. OTHER: None. IMPRESSION: 1. No acute intracranial process identified.
[2024-09-11 21:00] VITALS: BP_SYST 108; BP_SYST 112; BP_SYST 114; BP_DIAS 52; BP_DIAS 53; BP_DIAS 64; PULSE 73; PULSE 75; RESP 16; RESP 17; TEMP 98.6; O2SAT 100; O2SAT 99
[2024-09-12] VITALS (7 sets, daily range): BP systolic 98–120; BP diastolic 50–71; PULSE 74–86; RESP 16–18; TEMP 97.9–99.6; O2SAT 96–99
[2024-09-12 06:55] LABS: Basophils # (auto) 0 10 ^3/uL (0-0.2); Basophils % (auto) 0.4 % (0.0-2.0); Eosinophils # (auto) 0.2 10 ^3/uL (0-0.8); Lymphocytes # (auto) 2.1 10 ^3/uL (0.4-5.4); Mean Corpuscular Hgb Conc. 33.3 g/dL (32.0-36.0); Mean Corpuscular Volume 80.9 fL (80.0-100.0); Monocytes # (auto) 0.8 10 ^3/uL (0-1.3); Monocytes % (auto) 8.7 % (0.0-12.0); Neutrophils # (auto) 5.6 10 ^3/uL (1.6-8.6); Neutrophils % (auto) 64.9 % (37.0-80.0); Nucleated Red Blood Cells % 0.1 %; Platelet Count (auto) 330 10^3/uL (140-450); Red Blood Cells 4.45 10^6/uL (4.0-5.20); Red Cell Distribution Width 13.9 % (11.8-14.3); White Blood Cell 8.7 10^3/uL (4.4-10.8)
[2024-09-12 07:12] LABS: Alanine Aminotransferase 16 U/L (7-40); Albumin 4.2 g/dL (3.2-4.8); Alkaline Phosphatase 72 U/L (46-116); Anion Gap 9 (5-15); Aspartate Aminotransferase 18 U/L (13-40); Bilirubin, Total 0.6 mg/dL (0.2-1.0); Blood Urea Nitrogen 16 mg/dL (9-23); Carbon Dioxide 27 mmol/L (20-31); Chloride 105 mmol/L (98-107); Potassium 4.4 mmol/L (3.5-5.1); Sodium 141 mmol/L (136-145); Total Protein 6.9 g/dL (5.7-8.2)
[2024-09-12 07:14] LABS: Glucose 111 mg/dL (74-106)
--- NOTE | 2024-09-12 10:52 | ECG ---
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
--- NOTE | 2024-09-12 15:43 | DVHPN2 ---
Subjective Continues to complain of dizziness Reviewed: Care Plan, H&P, Labs, Medications, Previous Orders, Radiology Changes from previous H/P or p: No Changes Objective Vitals Vital Signs Date Time Temp Pulse Resp B/P (MAP) Pulse Ox O2 Delivery O2 Flow Rate FiO2 09/12/24 13:00 97.9 77 18 98/53 (68) 99 97.9 09/12/24 08:15 Room Air* 0 21 Intake/Output Intake and Output 09/12/24 07:00 Intake Total 1580 ml Balance 1580 ml Intake Oral 1580 ml # Voids 6 # Bowel Movements 2 General Appearance: Alert, Oriented X3, Cooperative, No acute distress HEENT: Atraumatic Lungs: Clear to auscultation, Normal air movement Cardiovascular: Regular rate, Normal S1, Normal S2, No murmurs Abdomen: Normal bowel sounds, Soft, No tenderness Neuro: Normal gait, Normal speech, Strength at 5/5 X4 ext, Normal tone, S ensation intact, Cranial nerves 3-12 NL, Reflexes 2+ Psych/Mental Status: Mental status NL, Mood NL Medications Current Medications Medications Dose Ordered Sig/Teodora Route Start Time Stop Time Status Last Admin Dose Admin Sodium Chloride 10 ml Q8HR IV 09/10/24 22:00 09/12/24 05:14 10 ML Docusate Sodium 100 mg BIDPRN PRN PO 09/10/24 21:15 Acetaminophen 650 mg Q6HP PRN PO 09/10/24 21:15 Acetaminophen/ Hydrocodone Bitart 1 tab Q4HP PRN PO 09/10/24 21:15 Ondansetron HCl 4 mg Q4HP PRN IV 09/10/24 21:15 Laboratory Results Laboratory Tests 09/12/24 06:28 Chemistry Test 09/12/24 06:28 Albumin 4.2 g/dL (3.2-4.8) Calcium Level 10.0 mg/dL (8.7-10.4) Total Protein 6.9 g/dL (5.7-8.2) LFT Test 09/12/24 06:28 Alanine Aminotransferase (ALT) 16 U/L (7-40) Alkaline Phosphatase 72 U/L (46-116) Aspartate Amino Transferase (AST) 18 U/L (13-40) Total Bilirubin 0.6 mg/dL (0.2-1.0) Urinalysis Test 09/10/24 17:55 Urine Color Colorless (Yellow) Urine Clarity Clear (Clear) Urine pH 6.0 (5.0-9.0) Urine Specific [place] 1.003 (1.001-1.035) Urine Protein Negative (Negative) Urine Ketones Negative (Negative) Urine Blood Negative /uL (Negative) Urine Nitrite Negative (Negative) Urine Bilirubin Negative (Negative) Urine Urobilinogen Normal mg/dL (Negative) Urine Leukocyte Esterase 2+ /uL (Negative) Urine RBC <1 /hpf (0 - 4) Urine Microscopic WBC 7 /HPF (0-5) H Urine Squamous Epithelial Cells None seen /hpf (<5) Urine Bacteria Few /hpf (None Seen) H Urine Glucose Normal mg/dL (Normal) Assessment/Plan Assessment/Plan A 63-year-old female patient; with multiple comorbidities; presented to the emergency department with acute dizziness. Acute dizziness; stroke ruled out; unclear etiology Overweight Negative orthostatics Reviewed head CT and brain MRI that showed no acute abnormality Neurology evaluation; pending Fall precautions Counseled the patient importance of adopting healthy lifestyle with diet and exercise in order to lose weight Continue monitoring Late Entry. This medical document was created using an electronic medical record system with computerized dictation system. Although this document has been carefully reviewed, there might still be some phonetic and typographical errors. These areas are purely typographical due to imperfections of the software programs, and do not reflect any compromise in the patient's medical care. Plan discussed with: Patient, Spouse, Other (Nurse) Date of Service: Sep 12, 2024 Billing Provider: ASUNCION CREWS MD Common Visit Codes: [id number] INP/OBS CARE(HIGH) ASUNCION CREWS MD Sep 12, 2024 15:43
--- NOTE | 2024-09-12 23:29 | DVHINCON2 ---
Date of service: Sep 12, [address] De La Cruz Reason for Consultation Vertigo, persistent History of Present Illness Ms. Lassiter is a 63 years old right-handed female otherwise healthy, she came to the [facility] on 09/10/2024 with a chief company of dizziness. At that time, she was alert and fully oriented, she provided the following history. On 09/10/2024, when she was lying down at home, she had sudden onset of intense dizziness where everything was spinning around for seconds, since then she was noticed when she moves her body, especially lying down, getting up, reasonable bending in the head, she will have very brief intense spinning sensation without vision changes, hearing changes, tinnitus, focal weakness numbness (except for bilateral jaw numbness when she was in the emergency room). She was never had similar problems previously. He did not have reasonably fall off brain injury For five months of time, the patient was has pain in the neck, but she does not have paresthesia/weakness in the arms and the legs she was no difficulty with bowel bladder control. She denied a history of neck injury He was daily or moderate headache for several days, she took Tylenol on daily basis at home Urinalysis, 09/10/2024: WBC: 7, urine leukocyte esterase: 2+ CBC, 09/10/24: Unremarkable CMP, 09/12/2024: Unremarkable CT head, 09/10/24: No acute intracranial Findings as visualized. If there is persistent clinical concern, follow-up MRI may be obtained to further evaluate MRI head, 09/11/2024: No acute intracranial process identified. Past Medical History No major medical history Past Surgical History Tubal Ligation Family History: Diabetes mellitus G8 MOTHER Glaucoma G8 FATHER Family History Diabetes, glaucoma Social History She was a non-smoker. She was no history of alcohol or recreational substance abuse Allergies: Coded Allergies: NO KNOWN ALLERGIES (Unverified , 07/22/12) Home Meds Active Scripts Ondansetron Odt 4MG Tab (ZOFRAN PO) 4 Mg Tb, 4 MG PO Q6HP PRN, #20 TAB ODT TAB-DISSOLVE IN MOUTH, THEN SWALLOW Prov:SHIRLEY PARRY PAC 10/23/23 Acetaminophen (Acetaminophen) 500 Mg Tab, 500 MG PO Q4HP PRN, #30 TAB Prov:SHIRLEY PARRY PAC 10/23/23 Dicyclomine Hcl (BENTYL CAPSULE) 10 Mg Cp, 1 CAP PO Q6HPRN, #20 CAP 0 Refills Prov:SHIRLEY PARRY PAC 10/23/23 Metronidazole (Metronidazole) 500 Mg Tab, 500 MG PO BID for 10 Days, #20 TAB Prov:SHIRLEY PARRY PAC 10/23/23 Nitrofurantoin Monohydrate Mac (Macrobid) 100 Mg Cap, 100 MG PO BID for 7 Days, #14 CAP Prov:SHIRLEY PARRY PAC 10/23/23 Ibuprofen (Ibuprofen) 800 Mg Tab, 1 TAB PO TID, #30 TAB Prov:JAKE PINON 11/29/22 Cephalexin Monohydrate (Cephalexin) 500 Mg Cap, 1 CAP PO QID, #40 CAP Prov:JAKE PINON 11/29/22 Review of Systems As above, the other systems are negative Vital Signs Vital Signs Date Time Temp Pulse Resp B/P (MAP) Pulse Ox O2 Delivery O2 Flow Rate FiO2 09/12/24 21:00 98.1 80 18 108/59 (75) 96 98.1 09/12/24 08:15 Room Air* 0 21 Physical Exam GENERAL EXAM: General: the patient is well developed and nourished. No acute distress. HEENT: Normocephalic, neck is supple, no carotid bruits. No mass. RESPIRATORY: Normal respiratory effort with symmetrical lung expansion. Lungs clear to auscultation. CARDIOVASCULAR: Regular rate and rhythm with no murmurs. S1, S2. ABDOMEN: Soft, nontender, normal bowel sound MUSCULOSKELETAL EXAM: Tenderness in cervical region NEUROLOGICAL: MENTAL STATUS: Awake and alert. Oriented to person, place, time and general circumstances. Able to give personal history. SPEECH, LANGUAGE, HIGHER CORTICAL FUNCTION: no aphasia or dysathria. CRANIAL NERVES: #2: Intact visual sherwood to confrontation. The optic discs were sharp. #3,4,6: Pupils are equal, round and reactive. EOMs full and conjugate. No nystagmus. #5: Facial sensation intact in all three divisions bilaterally. Mandibular strength intact. #7: Facial muscles symmetrical and strength intact. #8: Hearing grossly normal to voice. #9,10: Uvula and soft palate rise in the midline. Swallow and voice are normal. #11: Trapezius and sternomastoid strength intact bilaterally. #12: Tongue midline. No fasciculations or atrophy. SENSATION: Sensation to touch and pinprick is normal. MOTOR: Normal tone in the upper and lower extremity. Normal muscle bulk. No fas ciculations. No abnormal movements or posturing. Muscle strength of the major groups in the upper extremities is 5/5. Muscle strength of the major groups in the lower extremities is 5/5. REFLEXES: Deep tendon reflexes are symmetrical. No pathological reflexes. CEREBELLAR/COORDINATION: Finger to nose and heel to little are normal bilaterally. GAIT/STATION: deferred. Labs/Diagnostic Data Labs Test 09/12/24 06:28 09/10/24 18:37 09/10/24 17:55 09/10/24 15:43 Range/Units White Blood Count 8.7 4.4-10.8 10^3/uL Red Blood Count 4.45 4.0-5.20 10^6/uL Hemoglobin 12.0 L 12.2-16.2 g/dL Hematocrit 36.0 36.0-46.0 % Mean Corpuscular Volume 80.9 80.0-100.0 fL Mean Corpuscular Hemoglobin 27.0 L 28.0-32.0 pg Mean Corpuscular Hemoglobin Concent 33.3 32.0-36.0 g/dL Red Cell Distribution Width 13.9 11.8-14.3 % Platelet Count 330 140-450 10^3/uL Mean Platelet Volume 8.2 6.9-10.8 fL Neutrophils (%) (Auto) 64.9 37.0-80.0 % Lymphocytes (%) (Auto) 24.0 10.0-50.0 % Monocytes (%) (Auto) 8.7 0.0-12.0 % Eosinophils (%) (Auto) 2.0 0.0-7.0 % Basophils (%) (Auto) 0.4 0.0-2.0 % Neutrophils # (Auto) 5.6 1.6-8.6 10 ^3/uL Lymphocytes # (Auto) 2.1 0.4-5.4 10 ^3/uL Monocytes # (Auto) 0.8 0-1.3 10 ^3/uL Eosinophils # (Auto) 0.2 0-0.8 10 ^3/uL Basophils # (Auto) 0 0-0.2 10 ^3/uL Nucleated Red Blood Cells 0.1 % Sodium Level 141 136-145 mmol/L Potassium Level 4.4 3.5-5.1 mmol/L Chloride Level 105 98-107 mmol/L Carbon Dioxide Level 27 20-31 mmol/L Anion Gap 9 5-15 Blood Urea Nitrogen 16 9-23 mg/dL Creatinine 0.80 0.550-1.02 mg/dL Glomerular Filtration Rate Calc 82 >90 mL/min BUN/Creatinine Ratio 20.0 10.0-20.0 Serum Glucose 111 H 74-106 mg/dL Calcium Level 10.0 8.7-10.4 mg/dL Total Bilirubin 0.6 0.2-1.0 mg/dL Aspartate Amino Transferase (AST) 18 13-40 U/L Alanine Aminotransferase (ALT) 16 7-40 U/L Alkaline Phosphatase 72 46-116 U/L Total Protein 6.9 5.7-8.2 g/dL Albumin 4.2 3.2-4.8 g/dL Troponin I High Sensitivity < 3 L </=34 ng/L C-Reactive Protein High Sensitivity 5.32 H <1.0 mg/dL Urine Color Colorless Yellow Urine Clarity Clear Clear Urine pH 6.0 5.0-9.0 Urine Specific [place] 1.003 1.001-1.035 Urine Protein Negative Negative Urine Ketones Negative Negative Urine Blood Negative Negative /uL Urine Nitrite Negative Negative Urine Bilirubin Negative Negative Urine Urobilinogen Normal Negative mg/dL Urine Leukocyte Esterase 2+ Negative /uL Urine RBC <1 0 - 4 /hpf Urine Microscopic WBC 7 H 0-5 /HPF Urine Squamous Epithelial Cells None seen <5 /hpf Urine Bacteria Few H None Seen /hpf Urine Glucose Normal Normal mg/dL Lactic Acid Level 0.5 0.4-2.0 mmol/L Magnesium Level 2.0 1.6-2.6 mg/dL Test 09/10/24 15:42 Range/Units POC Glucose 102 70-106 mg/dl Assessment Dizziness/vertigo, she likely has benign paroxysmal positional vertigo Neck pain New onset daily headache Plan/Recommendation Monitoring Supportive treatment Telemetry MRI cervical spine She has been advised not to take [id number] pain medication or any pain medication on regular basis for headache Further address the benign paroxysmal positional vertigo as outpatient Follow up with him on discharge YASMANI I have discussed with her and her , I have recommended reading material for both of them Progress: Poor This medical document was created using an electronic medical record system with [employer] computerized dictation system. Although this document has been carefully reviewed, there may still be some phonetic and typographical errors. These areas are purely typographical due to imperfections of the software programs, and do not reflect any compromise in the patient's medical care. Plan discussed with: Patient, Spouse, Other JAKE NELSON MD Sep 12, 2024 23:29
[2024-09-13] MEDS ORDERED: LORazepam 2MG/ML-1ML VIAL IV PRN
[2024-09-13 01:00] VITALS: BP 107/60; PULSE 71; RESP 18; TEMP 98.4; O2SAT 99
[2024-09-13 05:00] VITALS: BP 112/64; PULSE 65; RESP 18; TEMP 97.9; O2SAT 100
[2024-09-13 06:33] LABS: Basophils # (auto) 0 10 ^3/uL (0-0.2); Basophils % (auto) 0.5 % (0.0-2.0); Eosinophils # (auto) 0.2 10 ^3/uL (0-0.8); Eosinophils % (auto) 3.3 % (0.0-7.0); Hematocrit 36.5 % (36.0-46.0); Hemoglobin 12.3 g/dL (12.2-16.2); Lymphocytes # (auto) 2.4 10 ^3/uL (0.4-5.4); Mean Corpuscular Hemoglobin 27.2 pg (28.0-32.0); Mean Corpuscular Hgb Conc. 33.6 g/dL (32.0-36.0); Mean Corpuscular Volume 81.1 fL (80.0-100.0); Monocytes # (auto) 0.6 10 ^3/uL (0-1.3); Monocytes % (auto) 9.5 % (0.0-12.0); Neutrophils # (auto) 3.5 10 ^3/uL (1.6-8.6); Neutrophils % (auto) 51.7 % (37.0-80.0); Nucleated Red Blood Cells % 0.1 %; Platelet Count (auto) 338 10^3/uL (140-450); Red Cell Distribution Width 14.1 % (11.8-14.3); White Blood Cell 6.7 10^3/uL (4.4-10.8)
[2024-09-13 07:03] LABS: Alanine Aminotransferase 18 U/L (7-40); Alkaline Phosphatase 72 U/L (46-116); Anion Gap 8 (5-15); BUN/Creatinine Ratio 20.3 (10.0-20.0); Blood Urea Nitrogen 15 mg/dL (9-23); Carbon Dioxide 28 mmol/L (20-31); Chloride 104 mmol/L (98-107); Glucose 98 mg/dL (74-106); Potassium 4.3 mmol/L (3.5-5.1); Sodium 140 mmol/L (136-145)
[2024-09-13 07:05] LABS: Albumin 4.3 g/dL (3.2-4.8); Aspartate Aminotransferase 18 U/L (13-40); Bilirubin, Total 0.5 mg/dL (0.2-1.0)
[2024-09-13 09:00] VITALS: BP 115/57; PULSE 72; RESP 16; TEMP 98.2; O2SAT 100
--- NOTE | 2024-09-13 09:46 | DVHPN2 ---
Progress Note - Dictate Date Seen: Sep 13, 2024 Medical Necessity Reason Pt with a Central, PICC or Fol: No Subjective Ms. Lassiter is a 63 years old right-handed female otherwise healthy, she came to the [facility] on 09/10/2024 with a chief company of dizziness. I have seen and examined the patient, I have discussed with her nurse, her in the room with her They have read the written material and the agree she was likely has benign paroxysmal positional vertigo, I advised him to follow up with her doctors YASMANI on discharge Urinalysis, 09/10/2024: WBC: 7, urine leukocyte esterase: 2+ CBC, 09/10/24: Unremarkable CMP, 09/12/2024: Unremarkable CT head, 09/10/24: No acute intracranial Findings as visualized. If there is persistent clinical concern, follow-up MRI may be obtained to further evaluate MRI head, 09/11/2024: No acute intracranial process identified MRI C-spine, 09/13/2024: 1. Mild degenerative changes in the cervical spine as described above. There is no spinal canal stenosis. 2. Mild right neural foraminal narrowing at C3-C4 and C5-C6. vital signs Vital Sign Date Time Temp Pulse Resp B/P (MAP) Pulse Ox O2 Delivery O2 Flow Rate FiO2 09/13/24 08:00 Room Air* 0 21 09/13/24 05:00 97.9 65 18 112/64 (80) 100 97.9 Total Intake and Output 09/12/24 09/12/24 09/13/24 15:00 23:00 07:00 Intake Total 1820 ml 450 ml Balance 1820 ml 450 ml medications Current Medications Medications Dose Ordered Sig/Teodora Route Start Time Stop Time Status Last Admin Dose Admin Sodium Chloride 10 ml Q8HR IV 09/10/24 22:00 09/13/24 05:50 10 ML Docusate Sodium 100 mg BIDPRN PRN PO 09/10/24 21:15 Acetaminophen 650 mg Q6HP PRN PO 09/10/24 21:15 Acetaminophen/ Hydrocodone Bitart 1 tab Q4HP PRN PO 09/10/24 21:15 Ondansetron HCl 4 mg Q4HP PRN IV 09/10/24 21:15 Lorazepam 1 mg ONCE PRN IV 09/13/24 00:00 objective General: the patient is well developed and nourished. No acute distress. MUSCULOSKELETAL EXAM: Tenderness in cervical region MENTAL STATUS: Subjective. SPEECH, LANGUAGE, HIGHER CORTICAL FUNCTION: no aphasia or dysathria. CRANIAL NERVES: Pupils are equal, round and reactive. EOMs full and conjugate. No nystagmus. Facial sensation intact in all three divisions bilaterally. Mandibular strength intact. Facial muscles symmetrical and strength intact. SENSATION: Sensation to touch and pinprick is normal. MOTOR: Normal tone in the upper and lower extremity. Normal muscle bulk. No fasciculations. No abnormal movements or posturing. Muscle strength of the major groups in the extremities is 5/5. REFLEXES: Deep tendon reflexes are symmetrical. No pathological reflexes. CEREBELLAR/COORDINATION: Finger to nose and heel to little are normal bilaterally. GAIT/STATION: deferred laboratory and microbiology Laboratory Tests 09/13/24 05:43 Test 09/13/24 05:43 Range/Units Serum Glucose 98 74-106 mg/dL Problem List Dizziness/vertigo, she likely has benign paroxysmal positional vertigo Neck pain New onset daily headache Assessment/Plan Monitoring Supportive treatment Telemetry MRI cervical spine She has been advised not to take [id number] pain medication or any pain medication on regular basis for headache Further address the benign paroxysmal positional vertigo as outpatient I have discussed with her and her , I have recommended reading material for both of them This medical document was created using an electronic medical record system with [employer] dictation system. Although this document has been carefully reviewed, there may still be some phonetic and typographical errors. These areas are purely typographical due to imperfections of the software programs, and do not reflect any compromise in the patient's medical care. Plan discussed with: Patient, Spouse, Other Total Time (mins): 35 JAKE NELSON MD Sep 13, 2024 09:46
--- NOTE | 2024-09-13 10:12 | DVH ---
MRI CERVICAL SPINE CLINICAL HISTORY: Neck pain Comparison: None Technique: Multi planar, multi sequence MR images of the cervical spine without intravenous contrast. FINDINGS: The cervical spinal cord demonstrates normal caliber and signal. The visualized posterior fossa amie nts appear unremarkable. The craniocervical junction is within normal limits. The vertebral body heig hts and bone marrow signal are appropriate. There is mild straightening of the cervical lordosis. The re is multilevel disc desiccation. There is minimal disc space narrowing at C6-C7. At C2-C3 there is no significant disc herniation. There is no spinal canal or neuroforaminal stenosis . At C3-C4 there is mild disc bulge and right uncovertebral arthropathy. There is no canal stenosis. T here is mild right neural foraminal narrowing. At C4-C5 there is mild disc bulge without canal or significant foraminal stenosis. At C5-C6 there is disc bulge and mild uncovertebral arthropathy. There is no canal stenosis. There is mild right neural foraminal narrowing. At C6-C7 there is disc bulge without canal or significant foraminal stenosis. At C7-T1 there is no significant disc herniation. There is no spinal canal or neuroforaminal stenosis . IMPRESSION: 1. Mild degenerative changes in the cervical spine as described above. There is no spinal canal steno sis. 2. Mild right neural foraminal narrowing at C3-C4 and C5-C6. HS:Y
--- NOTE | 2024-09-13 10:23 | DVHPN2 ---
Subjective Doing better this morning Reviewed: Care Plan, H&P, Labs, Medications, Previous Orders, Radiology Changes from previous H/P or p: Changes Objective Vitals Vital Signs Date Time Temp Pulse Resp B/P (MAP) Pulse Ox O2 Delivery O2 Flow Rate FiO2 09/13/24 09:00 98.2 72 16 115/57 (76) 100 98.2 09/13/24 08:00 Room Air* 0 21 Intake/Output Intake and Output 09/13/24 07:00 Intake Total 2270 ml Balance 2270 ml Intake Oral 2270 ml # Voids 5 # Bowel Movements 2 General Appearance: Alert, Oriented X3, Cooperative, No acute distress HEENT: Atraumatic Lungs: Clear to auscultation, Normal air movement Cardiovascular: Regular rate, Normal S1, Normal S2, No murmurs Abdomen: Normal bowel sounds, Soft, No tenderness Neuro: Normal gait, Normal speech, Strength at 5/5 X4 ext, Normal tone, S ensation intact, Cranial nerves 3-12 NL, Reflexes 2+ Psych/Mental Status: Mental status NL, Mood NL Medications Current Medications Medications Dose Ordered Sig/Teodora Route Start Time Stop Time Status Last Admin Dose Admin Sodium Chloride 10 ml Q8HR IV 09/10/24 22:00 09/13/24 05:50 10 ML Docusate Sodium 100 mg BIDPRN PRN PO 09/10/24 21:15 Acetaminophen 650 mg Q6HP PRN PO 09/10/24 21:15 Acetaminophen/ Hydrocodone Bitart 1 tab Q4HP PRN PO 09/10/24 21:15 Ondansetron HCl 4 mg Q4HP PRN IV 09/10/24 21:15 Lorazepam 1 mg ONCE PRN IV 09/13/24 00:00 Laboratory Results Laboratory Tests 09/13/24 05:43 Chemistry Test 09/13/24 05:43 Albumin 4.3 g/dL (3.2-4.8) Calcium Level 10.0 mg/dL (8.7-10.4) Total Protein 7.0 g/dL (5.7-8.2) LFT Test 09/13/24 05:43 Alanine Aminotransferase (ALT) 18 U/L (7-40) Alkaline Phosphatase 72 U/L (46-116) Aspartate Amino Transferase (AST) 18 U/L (13-40) Total Bilirubin 0.5 mg/dL (0.2-1.0) Urinalysis Test 09/10/24 17:55 Urine Color Colorless (Yellow) Urine Clarity Clear (Clear) Urine pH 6.0 (5.0-9.0) Urine Specific [place] 1.003 (1.001-1.035) Urine Protein Negative (Negative) Urine Ketones Negative (Negative) Urine Blood Negative /uL (Negative) Urine Nitrite Negative (Negative) Urine Bilirubin Negative (Negative) Urine Urobilinogen Normal mg/dL (Negative) Urine Leukocyte Esterase 2+ /uL (Negative) Urine RBC <1 /hpf (0 - 4) Urine Microscopic WBC 7 /HPF (0-5) H Urine Squamous Epithelial Cells None seen /hpf (<5) Urine Bacteria Few /hpf (None Seen) H Urine Glucose Normal mg/dL (Normal) Labs and/or images reviewed: Labs reviewed by me, Image(s) reviewed by me Assessment/Plan Assessment/Plan A 63-year-old female patient; with no known PMHx; presented to the emergency department with acute dizziness. Acute dizziness; stroke ruled out; unclear etiology (Dizziness/vertigo, likely has benign paroxysmal positional vertigo as per neurology) Overweight Negative orthostatics Reviewed head CT and brain MRI that showed no acute abnormality Neurology as above; to be further evaluated as outpatient on September 16, 2024 To follow up with PCP within 1 week from discharge Prescribed meclizine PRN Late Entry. This medical document was created using an electronic medical record system with computerized dictation system. Although this document has been carefully reviewed, there might still be some phonetic and typographical errors. These areas are purely typographical due to imperfections of the software programs, and do not reflect any compromise in the patient's medical care. Plan discussed with: Patient, Other (Nurse) Date of Service: Sep 13, 2024 Billing Provider: ASUNCION CREWS MD Common Visit Codes: [id number] INP/OBS CARE(MOD) ASUNCION CREWS MD Sep 13, 2024 10:23
[2024-09-13] MEDS ORDERED: MECL12.586 PO (11:51)
--- NOTE | 2024-09-13 11:54 | DVHDS2 ---
Discharge Summary Date of Admission Sep 10, 2024 at 21:12 Date of Discharge: Sep 13, 2024 Admitting Diagnosis Acute Dizziness Labs/Diagnostic Data: Laboratory Results Test 09/13/24 05:43 09/10/24 18:37 09/10/24 17:55 09/10/24 15:43 White Blood Count 6.7 10^3/uL (4.4-10.8) Red Blood Count 4.50 10^6/uL (4.0-5.20) Hemoglobin 12.3 g/dL (12.2-16.2) Hematocrit 36.5 % (36.0-46.0) Mean Corpuscular Volume 81.1 fL (80.0-100.0) Mean Corpuscular Hemoglobin 27.2 pg (28.0-32.0) Mean Corpuscular Hemoglobin Concent 33.6 g/dL (32.0-36.0) Red Cell Distribution Width 14.1 % (11.8-14.3) Platelet Count 338 10^3/uL (140-450) Mean Platelet Volume 8.2 fL (6.9-10.8) Neutrophils (%) (Auto) 51.7 % (37.0-80.0) Lymphocytes (%) (Auto) 35.0 % (10.0-50.0) Monocytes (%) (Auto) 9.5 % (0.0-12.0) Eosinophils (%) (Auto) 3.3 % (0.0-7.0) Basophils (%) (Auto) 0.5 % (0.0-2.0) Neutrophils # (Auto) 3.5 10 ^3/uL (1.6-8.6) Lymphocytes # (Auto) 2.4 10 ^3/uL (0.4-5.4) Monocytes # (Auto) 0.6 10 ^3/uL (0-1.3) Eosinophils # (Auto) 0.2 10 ^3/uL (0-0.8) Basophils # (Auto) 0 10 ^3/uL (0-0.2) Nucleated Red Blood Cells 0.1 % Sodium Level 140 mmol/L (136-145) Potassium Level 4.3 mmol/L (3.5-5.1) Chloride Level 104 mmol/L (98-107) Carbon Dioxide Level 28 mmol/L (20-31) Anion Gap 8 (5-15) Blood Urea Nitrogen 15 mg/dL (9-23) Creatinine 0.74 mg/dL (0.550-1.02) Glomerular Filtration Rate Calc 90 mL/min (>90) BUN/Creatinine Ratio 20.3 (10.0-20.0) Serum Glucose 98 mg/dL (74-106) Calcium Level 10.0 mg/dL (8.7-10.4) Total Bilirubin 0.5 mg/dL (0.2-1.0) Aspartate Amino Transferase (AST) 18 U/L (13-40) Alanine Aminotransferase (ALT) 18 U/L (7-40) Alkaline Phosphatase 72 U/L (46-116) Total Protein 7.0 g/dL (5.7-8.2) Albumin 4.3 g/dL (3.2-4.8) Troponin I High Sensitivity < 3 ng/L (</=34) C-Reactive Protein High Sensitivity 5.32 mg/dL (<1.0) Urine Color Colorless (Yellow) Urine Clarity Clear (Clear) Urine pH 6.0 (5.0-9.0) Urine Specific [place] 1.003 (1.001-1.035) Urine Protein Negative (Negative) Urine Ketones Negative (Negative) Urine Blood Negative /uL (Negative) Urine Nitrite Negative (Negative) Urine Bilirubin Negative (Negative) Urine Urobilinogen Normal mg/dL (Negative) Urine Leukocyte Esterase 2+ /uL (Negative) Urine RBC <1 /hpf (0 - 4) Urine Microscopic WBC 7 /HPF (0-5) Urine Squamous Epithelial Cells None seen /hpf (<5) Urine Bacteria Few /hpf (None Seen) Urine Glucose Normal mg/dL (Normal) Lactic Acid Level 0.5 mmol/L (0.4-2.0) Magnesium Level 2.0 mg/dL (1.6-2.6) Test 09/10/24 15:42 POC Glucose 102 mg/dl (70-106) Other Laboratory Tests 09/13/24 05:43 Brief Hx & Hospital Course: A 63-year-old female patient; with no known PMHx; presented to the emergency department with acute dizziness. Acute dizziness; stroke ruled out; unclear etiology (Dizziness/vertigo, likely has benign paroxysmal positional vertigo as per neurology) Overweight Negative orthostatics Reviewed head CT and brain MRI that showed no acute abnormality Neurology as above; to be further evaluated as outpatient on September 16, 2024 To follow up with PCP within 1 week from discharge Prescribed meclizine PRN Late Entry. This medical document was created using an electronic medical record system with computerized dictation system. Although this document has been carefully reviewed, there might still be some phonetic and typographical errors. These areas are purely typographical due to imperfections of the software programs, and do not reflect any compromise in the patient's medical care. Consults/Reason for consult Neurology for acute dizziness Condition at Discharge: Stable Final Diagnosis/Problems List Dizziness/vertigo, she likely has benign paroxysmal positional vertigo as per neurology Discharge Disposition: Home Discharge Instruct/Medications Diet: Regular Activity: No Restrictions, As Tolerated Follow Up/Referral: Dr. Ralph on September 16, 2024; PCP within 1 week Medications: Meclizine as needed Discharge Statement: "Patient was advised to return to the ER or call 911 if any headaches, dizziness, shortness of breath, chest pain, abdominal pain, bleeding, fevers, or worsening of medical condition. Patient was counseled about treatment plan, medications, possible side effects, patientverbalized understanding. All questions were answered to the best of my ability. This discharge took greater then 30 minutes in planning, reviewing documentation, counseling the patient, and discussing with other team members." ASSESSMENT ASSESSMENT Assessment Dizziness/vertigo, she likely has benign paroxysmal positional vertigo as per neurology Date of Service: Sep 13, 2024 Billing Provider: ASUNCION CREWS MD Common Visit Codes: 31907-WLX/OBS DISCH DAY >30min ASUNCION CREWS MD Sep 13, 2024 11:54
[2024-09-13 13:00] VITALS: BP 92/53; PULSE 64; RESP 16; TEMP 97.2; O2SAT 98
[2024-09-13 17:00] VITALS: BP 124/71; PULSE 71; RESP 16; TEMP 98.3; O2SAT 99
[2024-09-13 17:12] VITALS: BP 92/53; PULSE 64; RESP 16; TEMP 97.2; O2SAT 98
== END 2024-09-13 18:01 | disposition home or self-care (01) | DRG 149 ==
LOC: ER 15:23 → OVERFLOW 21:12 → EAST 21:17
PROVIDERS: ADMIT Internal Medicine; ATTEND Internal Medicine
DX: R42 Dizziness and giddiness (principal); E66.3 Overweight; Z98.51 Tubal ligation status; Z83.3 Family history of diabetes mellitus; Z79.1 Long term (current) use of non-steroidal anti-inflammatories (NSAID); Z79.899 Other long term (current) drug therapy; Z68.27 Body mass index [BMI] 27.0-27.9, adult
CPT/HCPCS: 36415; 70450; 70551; 72141; 80053; 81001; 82962; 83605; 83735; 84484; 85025; 86141; 93005; 96360; G0378